=== PATIENT | male | born 1980 | race American Indian/Alaskan Native ===

== ENCOUNTER 2016-05-27 11:46 | Emergency (ER) | payer OTHER, MEDICAID ==
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
[2016-05-27] MEDS ORDERED: TYLENOL PO ONE (18:40)
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
[2016-05-27 20:10] VITALS: BP 140/78
== END 2016-05-27 20:11 | disposition home or self-care (01) ==
LOC: ED 11:46
DX: S39.012A Strain of muscle, fascia and tendon of lower back, initial encounter (principal); V89.2XXA Person injured in unspecified motor-vehicle accident, traffic, initial encounter; Y93.89 Activity, other specified; Y99.9 Unspecified external cause status; Y92.410 Unspecified street and highway as the place of occurrence of the external cause
CPT/HCPCS: 70460; 72125